=== PATIENT | male | born 2000 | race Caucasian/White ===

== ENCOUNTER 2019-05-05 07:43 | Emergency (ER) | payer BC, OTHER ==
--- NOTE | 2019-05-05 08:43 | ER ---
Nurse's Notes [facility] Name: Michael Hobbs Age: 19 yrs Sex: Male : 2000 Arrival Date: 05/05/2019 Time: 07:45 Bed 8 Private MD: Diagnosis: Acute tonsillitis Presentation: 05/05 08:03 Presenting complaint: Patient states: fever and sweats at home for 1-2 days, report sg having a sore throat foe 3-4 days, denies N/V/D, reports having pain in the neck as well has pain when swallowing at this time. Transition of care: patient was not received from another setting of care. Onset of symptoms was May 02, 2019. Risk Assessment: Do you want to hurt yourself or someone else? Patient reports no desire to harm self or others. Initial Sepsis Screen: Does the patient meet any 2 criteria? No. Patient's initial sepsis screen is negative. Does the patient have a suspected source of infection? No. Patient's initial sepsis screen is negative. Care prior to arrival: None. 08:03 Acuity: RYLAND 4 sg 08:03 Method Of Arrival: Ambulatory sg Historical: - Allergies: 08:05 No Known Allergies; sg - Home Meds: 08:05 None [Active]; sg - PMHx: 08:05 None; sg - PSHx: 08:05 None; sg - Immunization history:: Adult Immunizations up to date. - Social history:: Smoking status: Patient uses tobacco products, unknown amount. - Ebola Screening: : Patient negative for fever greater than or equal to 101.5 degrees Fahrenheit, and additional compatible Ebola Virus Disease symptoms Patient denies exposure to infectious person Patient denies travel to an Ebola-affected area in the 21 days before illness onset No symptoms or risks identified at this time. Screenin:10 Abuse screen: Denies threats or abuse. Denies injuries from another. Nutritional sg screening: No deficits noted. Tuberculosis screening: No symptoms or risk factors identified. Never had TB. Fall Risk None identified. Assessment: 08:22 General: Appears in no apparent distress. uncomfortable, well groomed, well developed, sg well nourished, Behavior is calm, cooperative, appropriate for age. Pain: Complains of pain in sore throat, painful when swallowing. Neuro: Level of Consciousness is awake, alert, obeys commands, Oriented to person, place, time, situation, International Accounting Manager are equal bilaterally Moves all extremities. Full function Gait is steady, Speech is normal, Facial symmetry appears normal, Pupils are PERRLA. Cardiovascular: Capillary refill is brisk in bilateral fingers Patient's skin is warm and dry. Chest pain is denied. Respiratory: Airway is patent Respiratory effort is even, unlabored. GI: Abdomen is flat, non-distended, Reports normal bowel habits, tolerance of fluids, tolerance of food. : No signs and/or symptoms were reported regarding the genitourinary system. EENT: Oral mucosa is moist. Throat is reddened has enlarged tonsils Reports pain when swallowing. Derm: Skin is pink, warm \T\ dry. Musculoskeletal: Circulation, motion, and sensation intact. Range of motion: intact in all extremities. Vital Signs: 08:05 BP 127 / 73; Pulse 87; sg 08:05 Resp 17; Pulse Ox 98% on R/A; Weight 79.38 kg (R); Height 6 ft. 0 in. (182.88 cm); Pain sg 7/10; 09:00 BP 124 / 70; Pulse 67; Resp 14; Temp 98.8; Pulse Ox 97% on R/A; Pain 7/10; sg 08:05 Body Mass Index 23.73 (79.38 kg, 182.88 cm) ED Course: 07:45 Patient arrived in ED. cf2 08:00 Patric Roche PA is PHCP. jr8 08:00 Florencio Enriquez MD is Attending Physician. jr8 08:05 Triage completed. sg 08:06 Arm band placed on. sg 08:10 Patient has correct armband on for positive identification. Bed in low position. Call sg light in reach. Side rails up X2. Pulse ox on. NIBP on. 08:15 No provider procedures requiring assistance completed. sg 08:22 Bharat Montgomery RN is Primary Nurse. sg 08:24 Strep swab sent to lab. sg 09:00 Patient did not have IV access during this emergency room visit. sg Administered Medications: No medications were administered Outcome: 08:42 Discharge ordered by . jr8 09:00 Discharged to home ambulatory. sg 09:00 Condition: good 09:00 Discharge instructions given to patient, Instructed on discharge instructions, follow up and referral plans. no drinking with medication, medication usage, Demonstrated understanding of instructions, follow-up care, medications, Prescriptions given X 1. 09:03 Patient left the ED. sg Signatures: Bharat Montgomery RN RN Patric Alaniz PA PA jr8 Ahmet Daily [facility]
--- NOTE | 2019-05-05 08:44 | EDPHYS ---
Physician Documentation [facility] Name: Michael Hobbs Age: 19 yrs Sex: Male : 2000 Arrival Date: 05/05/2019 Time: 07:45 Bed 8 Private MD: ED Physician Florencio Enriquez HPI: 05/05 08:29 This 19 yrs old Male presents to ER via Ambulatory with complaints of Sore jr8 Throat, Weakness. 08:29 The patient presents with sore throat. The patient describes throat pain as constant, jr8 raw. Onset: The symptoms/episode began/occurred acutely, 3 day(s) ago. Severity of symptoms: At their worst the symptoms were mild, in the emergency department the symptoms are unchanged. Modifying factors: The symptoms are alleviated by nothing, the symptoms are aggravated by swallowing. Associated signs and symptoms: Pertinent positives: fever. The patient has not experienced similar symptoms in the past. The patient has not recently seen a physician. Historical: - Allergies: 08:05 No Known Allergies; sg - Home Meds: 08:05 None [Active]; sg - PMHx: 08:05 None; sg - PSHx: 08:05 None; sg - Immunization history:: Adult Immunizations up to date. - Social history:: Smoking status: Patient uses tobacco products, unknown amount. - Ebola Screening: : Patient negative for fever greater than or equal to 101.5 degrees Fahrenheit, and additional compatible Ebola Virus Disease symptoms Patient denies exposure to infectious person Patient denies travel to an Ebola-affected area in the 21 days before illness onset No symptoms or risks identified at this time. ROS: 08:29 Eyes: Negative for injury, pain, redness, and discharge, Neck: Negative for injury, jr8 pain, and swelling, Cardiovascular: Negative for chest pain, palpitations, and edema, Respiratory: Negative for shortness of breath, cough, wheezing, and pleuritic chest pain, Abdomen/GI: Negative for abdominal pain, nausea, vomiting, diarrhea, and constipation, Back: Negative for injury and pain, MS/Extremity: Negative for injury and deformity, Skin: Negative for injury, rash, and discoloration, Neuro: Negative for headache, weakness, numbness, tingling, and seizure. 08:29 Constitutional: Positive for fever. 08:29 ENT: Positive for sore throat. Exam: 08:29 Eyes: Pupils equal round and reactive to light, extra-ocular motions intact. Lids and jr8 lashes normal. Conjunctiva and sclera are non-icteric and not injected. Cornea within normal limits. Periorbital areas with no swelling, redness, or edema. Neck: Trachea midline, no thyromegaly or masses palpated, and no cervical lymphadenopathy. Supple, full range of motion without nuchal rigidity, or vertebral point tenderness. No Meningismus. Cardiovascular: Regular rate and rhythm with a normal S1 and S2. No gallops, murmurs, or rubs. Normal PMI, no JVD. No pulse deficits. Respiratory: Lungs have equal breath sounds bilaterally, clear to auscultation and percussion. No rales, rhonchi or wheezes noted. No increased work of breathing, no retractions or nasal flaring. Abdomen/GI: Soft, non-tender, with normal bowel sounds. No distension or tympany. No guarding or rebound. No evidence of tenderness throughout. Back: No spinal tenderness. No costovertebral tenderness. Full range of motion. Skin: Warm, dry with normal turgor. Normal color with no rashes, no lesions, and no evidence of cellulitis. MS/ Extremity: Pulses equal, no cyanosis. Neurovascular intact. Full, normal range of motion. Neuro: Awake and alert, GCS 15, oriented to person, place, time, and situation. Cranial nerves II-XII grossly intact. Motor strength 5/5 in all extremities. Sensory grossly intact. Cerebellar exam normal. Normal gait. 08:29 ENT: Exam is negative for earache, ear discharge, TM abnormalities, nasal discharge, Posterior pharynx: Airway: patent, Tonsils: bilaterally enlarged, with erythema, with exudate, no ulcerations, Uvula: midline, non-edematous, no erythema, swelling, is not appreciated, erythema, is not appreciated. Vital Signs: 08:05 BP 127 / 73; Pulse 87; sg 08:05 Resp 17; Pulse Ox 98% on R/A; Weight 79.38 kg (R); Height 6 ft. 0 in. (182.88 cm); Pain sg 7/10; 09:00 BP 124 / 70; Pulse 67; Resp 14; Temp 98.8; Pulse Ox 97% on R/A; Pain 7/10; sg 08:05 Body Mass Index 23.73 (79.38 kg, 182.88 cm) MDM: 08:25 Patient medically screened. 8 08:42 Data reviewed: vital signs, nurses notes, lab test result(s), and as a result, I will jr8 discharge patient. Data interpreted: Pulse oximetry: on room air is 98 %. Interpretation: normal. Counseling: I had a detailed discussion with the patient and/or guardian regarding: the historical points, exam findings, and any diagnostic results supporting the discharge/admit diagnosis, lab results, the need for outpatient follow up, a family practitioner, to return to the emergency department if symptoms worsen or persist or if there are any questions or concerns that arise at home. 05/05 08:25 Order name: Strep; Complete Time: 08:42 8 05/05 08:45 Order name: Throat Culture EDMS Administered Medications: No medications were administered Disposition: 14:09 Co-signature as Attending Physician, Florencio Enriquez MD. rn Disposition: 05/05/19 08:42 Discharged to Home. Impression: Acute tonsillitis. - Condition is Stable. - Discharge Instructions: Tonsillitis. - Prescriptions for Augmentin 875- 125 mg Oral Tablet - take 1 tablet by ORAL route every 12 hours for 10 days; 20 tablet. - Work release form, Medication Reconciliation Form, Thank You Letter, Antibiotic Education, Prescription Opioid Use form. - Follow up: Private Physician; When: 2 - 3 days; Reason: Recheck today's complaints, Continuance of care, Re-evaluation by your physician. - Problem is new. - Symptoms have improved. Signatures: Dispatcher [employer] EDMS Bharat Montgomery RN RN sg Nieto, Roman, MD MD rn Roszak, Josh, PA PA jr8 Corrections: (The following items were deleted from the chart) 09:03 08:42 05/05/2019 08:42 Discharged to Home. Impression: Acute tonsillitis. Condition is sg Stable. Forms are Medication Reconciliation Form, Thank You Letter, Antibiotic Education, Prescription Opioid Use. Follow up: Private Physician; When: 2 - 3 days; Reason: Recheck today's complaints, Continuance of care, Re-evaluation by your physician. Problem is new. Symptoms have improved. jr8
== END 2019-05-05 09:03 | disposition home or self-care (01) ==
LOC: ER 07:43
DX: J03.90 Acute tonsillitis, unspecified (principal)
CPT/HCPCS: 87070; 87081; 99283

== ENCOUNTER 2019-12-25 16:28 | Emergency (ER) | payer OTHER ==
--- NOTE | 2019-12-25 17:45 | ER ---
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 No ll1 cough/fever. Coronavirus screen: Proceed with normal triage. Patient denies a cough. Patient denies shortness of breath or difficulty breathing. Patient denies measured and/or subjective temperature greater than 100.4F prior to today's visit. Patient denies travel on a cruise ship or to a country the [facility] currently lists as an affected area. Patient denies contact with known and/or suspected case of COVID-19. Ebola Screen: Patient denies travel to an Ebola-affected area in the 21 days before illness onset. Initial Sepsis Screen: Does the patient meet any 2 criteria? No. Patient's initial sepsis screen is negative. Does the patient have a suspected source of infection? No. Patient's initial sepsis screen is negative. Risk Assessment: Do you want to hurt yourself or someone else? Patient reports no desire to harm self or others. Onset of symptoms was December 25, 2019 at 16:20. 16:38 Method Of Arrival: Wheelchair ll1 16:38 Acuity: RYLAND 4 ll1 Triage Assessment: 16:40 General: Appears in no apparent distress. comfortable, Behavior is cooperative, bp appropriate for age, anxious. Pain: Complains of pain in right ankle. EENT: No deficits noted. Neuro: No deficits noted. Cardiovascular: No deficits noted. Respiratory: No deficits noted. GI: No signs and/or symptoms were reported involving the gastrointestinal system. : No signs and/or symptoms were reported regarding the genitourinary system. Derm: No deficits noted. Musculoskeletal: Swelling present in right ankle. Historical: - Allergies: 16:40 No Known Allergies; ll1 - PMHx: 16:40 None; ll1 - PSHx: 16:40 None; ll1 - Immunization history:: Flu vaccine is up to date. - Social history:: Smoking status: Patient reports the use of cigarette tobacco products, smokes one-half pack cigarettes per day, Patient/guardian denies using alcohol, street drugs, IV drugs. Screenin:47 Abuse screen: Denies threats or abuse. Denies injuries from another. Nutritional bp screening: No deficits noted. Tuberculosis screening: No symptoms or risk factors identified. Fall Risk None identified. Assessment: 16:40 General: SEE TRIAGE NOTE. bp 18:00 Reassessment: PT D/C HOME WITH FAMILY ON CRUTCHES, DX WITH R ANKLE SPRAIN. bp Vital Signs: 16:38 BP 129 / 90; Pulse 83; Resp 17; Temp 98.7; Pulse Ox 97% ; Weight 86.18 kg; Height 6 ft. ll1 0 in. (182.88 cm); Pain 8/10; 18:09 BP 117 / 79; Pulse 87; Resp 16; Pulse Ox 98% ; bp 16:38 Body Mass Index 25.77 (86.18 kg, 182.88 cm) ll1 ED Course: 16:34 Patient arrived in ED. am2 16:40 Triage completed. ll1 16:40 Arm band placed on Patient placed in an exam room, on a stretcher. ll1 16:41 Akbar Johnson PA is PHCP. cp 16:41 Alvin Anthony MD is Attending Physician. cp 16:45 Francisco Azul, KECIA is Primary Nurse. bp 16:47 Patient has correct armband on for positive identification. Bed in low position. Call bp light in reach. Side rails up X2. Adult w/ patient. 17:03 XRAY Ankle RIGHT 3 view In Process Unspecified. EDMS 17:43 Dewey Barnhart MD is Referral Physician. cp 18:08 No provider procedures requiring assistance completed. Patient did not have IV access bp during this emergency room visit. Crutch training done. R WALKING BOOT. Administered Medications: 16:50 Drug: Ibuprofen 800 mg Route: PO; bp 18:10 Follow up: Response: Pain is decreased bp Outcome: 17:45 Discharge ordered by . cp 18:09 Discharged to home ambulatory, with crutches, with family. bp 18:09 Condition: stable 18:09 Discharge instructions given to patient, Instructed on discharge instructions, follow up and referral plans. medication usage, crutch walking, Demonstrated understanding of instructions, follow-up care, medications, crutch walking, Prescriptions given X 1. 18:10 Patient left the ED. bp Signatures: Dispatcher [employer] EDMS Akbar Johnson PA PA cp Moreno, Amanda am2 Francisco Azul, RN RN bp Jhony Chandler RN RN ll1
--- NOTE | 2019-12-25 17:45 | EDPHYS ---
Physician Documentation [facility] Name: Michael Hobbs Age: 19 yrs Sex: Male : 2000 Arrival Date: 12/25/2019 Time: 16:34 Bed 8 Private MD: ED Physician Alvin Anthony HPI: 12/24 16:52 This 19 yrs old Male presents to ER via Wheelchair with complaints of Ankle cp Injury. 16:52 The patient presents with an injury, pain, that is acute, swelling, tenderness. The cp complaints affect the right ankle. Onset: The symptoms/episode began/occurred today. Context: The problem was sustained at a sports field or court, resulted from a mis-step by the patient, The mechanism of injury involved inversion of the affected ankle. The patient is unable to bear weight. Associated signs and symptoms: Pertinent negatives: calf tenderness, numbness. Historical: - Allergies: 16:40 No Known Allergies; ll1 - PMHx: 16:40 None; ll1 - PSHx: 16:40 None; ll1 - Immunization history:: Flu vaccine is up to date. - Social history:: Smoking status: Patient reports the use of cigarette tobacco products, smokes one-half pack cigarettes per day, Patient/guardian denies using alcohol, street drugs, IV drugs. ROS: 16:53 Constitutional: Negative for fever. cp 16:53 Cardiovascular: Negative for chest pain. 16:53 Respiratory: Negative for cough, wheezing. 16:53 Abdomen/GI: Negative for abdominal pain. 16:53 Back: Negative for pain at rest, pain with movement. 16:53 MS/extremity: Positive for injury or acute deformity, decreased range of motion, pain, swelling, tenderness, of the right ankle, Negative for paresthesias. 16:53 All other systems are negative. Exam: 16:55 Head/Face: Normocephalic, atraumatic. cp 16:55 Constitutional: The patient appears in no acute distress, alert, awake, non-toxic, well developed, well nourished. 16:55 Musculoskeletal/extremity: ROM: limited passive range of motion due to pain, in the right ankle, Perfusion: the extremity is normally perfused throughout, Sensation intact. Joints: All joints are normal except the right ankle displays painful range of motion, swelling, tenderness, Achilles tendon intact, no pain to palpation at proximal right fibula or base of right fifth metatarsal. Vital Signs: 16:38 BP 129 / 90; Pulse 83; Resp 17; Temp 98.7; Pulse Ox 97% ; Weight 86.18 kg; Height 6 ft. ll1 0 in. (182.88 cm); Pain 8/10; 18:09 BP 117 / 79; Pulse 87; Resp 16; Pulse Ox 98% ; bp 16:38 Body Mass Index 25.77 (86.18 kg, 182.88 cm) ll1 Procedures: 18:05 Splinting: Splint applied to right ankle using walking boot. applied by nurse. Patient cp tolerated well. Crutch training provided to patient and/or family. Return demonstration given. MDM: 16:46 Patient medically screened. cp 17:42 Differential diagnosis: fracture, sprain, dislocation. Data reviewed: vital signs, cp nurses notes, radiologic studies, plain films. Test interpretation: by ED physician or midlevel provider: plain radiologic studies, xrays of right ankle negative for fracture. Counseling: I had a detailed discussion with the patient and/or guardian regarding: the historical points, exam findings, and any diagnostic results supporting the discharge/admit diagnosis, radiology results, to return to the emergency department if symptoms worsen or persist or if there are any questions or concerns that arise at home. 12/24 16:46 Order name: XRAY Ankle RIGHT 3 view cp 12/24 17:42 Order name: Walking boot; Complete Time: 18:07 cp 12/24 17:42 Order name: Crutches; Complete Time: 18:07 cp Administered Medications: 16:50 Drug: Ibuprofen 800 mg Route: PO; bp 18:10 Follow up: Response: Pain is decreased bp Disposition: 18:15 Chart complete. cp 18:53 Co-signature as Attending Physician, Alvin Anthony MD I agree with the assessment and kdr plan of care. Disposition: 12/25/19 17:45 Discharged to Home. Impression: Sprain of ankle - right. - Condition is Stable. - Discharge Instructions: Elastic Bandage and RICE, Ankle Sprain. - Prescriptions for Naprosyn 500 mg Oral Tablet - take 1 tablet by ORAL route 2 times per day take with food; 20 tablet. - Medication Reconciliation Form, Thank You Letter, Antibiotic Education, Prescription Opioid Use form. - Follow up: Dewey Barnhart MD; When: 1 week; Reason: pain and swelling continues. - Problem is new. - Symptoms have improved. Signatures: Dispatcher [employer] EDMS Alvin Anthony MD MD [facility] Akbar Johnson PA PA cp Francisco Azul, RN RN bp Jhony Chandler RN RN ll1 Corrections: (The following items were deleted from the chart) 18:10 17:45 12/25/2019 17:45 Discharged to Home. Impression: Sprain of ankle - right. bp Condition is Stable. Forms are Medication Reconciliation Form, Thank You Letter, Antibiotic Education, Prescription Opioid Use. Follow up: Dr. Dewey Barnhart; When: 1 week; Reason: pain and swelling continues. Problem is new. Symptoms have improved. cp
--- NOTE | 2019-12-25 17:45 | RAD REPORT ---
EXAM DESCRIPTION: RAD - Ankle Right 3 View - 12/25/2019 5:03 pm CLINICAL HISTORY: Ankle pain, twisting injury COMPARISON: None. FINDINGS: No fracture, dislocation or periosteal reaction. No joint effusion seen. No joint space na rrowing. Lateral soft tissue swelling is present. IMPRESSION: Soft tissue swelling with no right ankle fracture.
[2019-12-25 18:17] VITALS: TEMP 98.7
[2019-12-25 18:21] VITALS: BP 117/79; O2SAT 98
== END 2019-12-25 18:10 | disposition home or self-care (01) ==
LOC: ER 16:28
DX: S93.401A Sprain of unspecified ligament of right ankle, initial encounter (principal); X50.1XXA Overexertion from prolonged static or awkward postures, initial encounter; Y93.67 Activity, basketball; Y92.310 Basketball court as the place of occurrence of the external cause; M79.9 Soft tissue disorder, unspecified; F17.210 Nicotine dependence, cigarettes, uncomplicated
CPT/HCPCS: 99284